=== PATIENT | female | born 1990 | race African-American/Black ===

== ENCOUNTER 2021-10-07 10:20 | Emergency (ER) | payer SELFPAY ==
[~2021-10-07] VITALS: Ht 152.4 cm; Wt 91.0 kg
[2021-10-07 11:45] LABS: CLARITY URINE CLEAR (CLEAR); COLOR URINE YELLOW (YELLOW); KETONES URINE NEGATIVE (NEGATIVE); LEUKOCYTE ESTERASE URINE NEGATIVE (NEGATIVE); NITRITE URINE NEGATIVE (NEGATIVE); OCCULT BLOOD URINE NEGATIVE (NEGATIVE); PROTEIN URINE NEGATIVE (NEGATIVE); SPECIFIC GRAVITY URINE 1.025 (1.005-1.030); UROBILINOGEN URINE 0.2 E.U./dL (0.2-1.0)
[2021-10-07] MEDS ORDERED: ACETAMINOPHEN 325MG TABLET PO ONE (12:15)
[2021-10-07 12:46] LABS: BASOPHILS % 0.7 % (0.0-2.0); EOSINOPHILS % 1.6 % (0.0-5.0); HEMOGLOBIN. 12.2 g/dL (12.0-16.0); LYMPHOCYTES % 23.8 % (20.0-50.0); MEAN CORPUSCULAR VOLUME 90.8 fL (81.0-99.0); MEAN PLATELET VOLUME 8.3 fl (7.4-10.4); MONOCYTES % 6.5 % (2.0-8.0); NEUTROPHILS % 67.4 % (40.0-76.0); PLATELET 392 x1000/uL (130-400); RED BLOOD CELL COUNT 4.08 mill/uL (4.2-5.4); RED CELL DISTRIBUTION WIDTH 12.8 % (11.6-14.6)
[2021-10-07 12:55] LABS: CHLORIDE 100 mEq/L (98-107)
[2021-10-07 13:10] LABS: HCG SCREEN NEGATIVE
[2021-10-07 13:41] VITALS: BP 123/72
== END 2021-10-07 13:41 | disposition left against medical advice (07) ==
LOC: ER 10:20
DX: R53.83 Other fatigue (principal); M79.604 Pain in right leg
CPT/HCPCS: 36415; 80053; 81003; 81025; 84703; 85025; 99283